=== PATIENT | female | born 1985 | race Caucasian/White ===

== ENCOUNTER 2023-06-22 00:45 | Emergency (ER) | payer MEDICAID, OTHER ==
[~2023-06-22] VITALS: Ht 172.7 cm; Wt 136.1 kg
[2023-06-22 00:47] VITALS: BP 132/85; PULSE 96; RESP 18; TEMP 97.6; O2SAT 99
[2023-06-22 01:53] VITALS: O2SAT 96
[2023-06-22] MEDS ORDERED: MORPHINE SULFATE 2 MG/ML SYR IVP STA (02:36)
[2023-06-22] MEDS ORDERED: NACL 0.9% 1,000 ML IV ONE (02:40)
[2023-06-22] MEDS ORDERED: KETOROLAC 30 MG/ML VIAL IVP ONE (02:40)
[2023-06-22] MEDS ORDERED: DEXAMETHASONE 10 MG/ML VIAL PO ONE (02:40)
[2023-06-22] MEDS ORDERED: NAPR-54 PO (03:29)
[2023-06-22] MEDS ORDERED: ROBAC PO (03:29)
[2023-06-22] MEDS ORDERED: AMOX500C25 PO (03:29)
[2023-06-22] MEDS ORDERED: diphenhydrAMINE 50 MG/ML VIAL IVP ONE (03:45)
[2023-06-22 03:50] VITALS: BP 123/71; PULSE 84; RESP 17; O2SAT 99
== END 2023-06-22 03:50 | disposition home or self-care (01) ==
LOC: MED 00:45
DX: J02.9 Acute pharyngitis, unspecified (principal); F41.9 Anxiety disorder, unspecified; Z79.1 Long term (current) use of non-steroidal anti-inflammatories (NSAID); Z79.2 Long term (current) use of antibiotics
CPT/HCPCS: 71045; 81025; 87081; 96361; 96374; 96375; 99284; J1100; J1200; J1885; J2270; J7030; 81002

== ENCOUNTER 2023-07-04 08:18 | Emergency (ER) | payer MEDICAID ==
[~2023-07-04] VITALS: Ht 172.7 cm; Wt 131.5 kg
[~2023-07-04 08:18] MED LIST: AMOX500C25 PO; NAPR-54 PO
[2023-07-04 08:24] VITALS: BP 116/77; PULSE 89; RESP 20; TEMP 98.3; O2SAT 100
[2023-07-04 08:40] VITALS: O2SAT 99
[2023-07-04] MEDS ORDERED: BENZOCAINE/MENTHOL 1 LOZ MM PRN (09:10)
[2023-07-04] MEDS ORDERED: DEXAMETHASONE 4 MG/ML VIAL PO ONE (09:10)
[2023-07-04] MEDS ORDERED: KETOROLAC 30 MG/ML VIAL IM ONE (09:10)
[2023-07-04] MEDS ORDERED: guaiFENesin DM 200/20 MG-10 ML 10 ML UDC PO ONE (09:20)
[2023-07-04 10:05] LABS: FLU A ANTIGEN negative (NEGATIVE); FLU B ANTIGEN NEGATIVE (NEGATIVE)
[2023-07-04] MEDS ORDERED: AMOX250P30 PO (10:11)
[2023-07-04] MEDS ORDERED: IBUP-1842 PO (10:11)
[2023-07-04] MEDS ORDERED: BENZ-300 PO (10:11)
== END 2023-07-04 10:30 | disposition home or self-care (01) ==
LOC: MED 08:18
DX: J03.90 Acute tonsillitis, unspecified (principal); Z20.822 Contact with and (suspected) exposure to COVID-19; Z79.899 Other long term (current) drug therapy
CPT/HCPCS: 71046; 87081; 87426; 87804; 96372; 99284; J1100; J1885

== ENCOUNTER 2023-09-11 00:24 | Emergency (ER) | payer MEDICAID ==
[~2023-09-11 00:24] MED LIST changes: +AMOX250P30 PO; +BENZ-300 PO; +IBUP-1842 PO
== END 2023-09-11 00:28 | disposition left against medical advice (07) ==
LOC: MED 00:24
DX: R00.0 Tachycardia, unspecified (principal); Z53.21 Procedure and treatment not carried out due to patient leaving prior to being seen by health care provider